=== PATIENT | female | born 1995 | race Caucasian/White ===

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

== ENCOUNTER 2017-02-20 09:01 | Emergency (ER) | payer MEDICAID ==
[~2017-02-20] VITALS: Wt 63.5 kg
[~2017-02-20 09:01] MED LIST changes: +IBUP400T22 PO
[2017-02-20 09:44] LABS: URINE BLOOD (Dip) POC Trace-intact (NEGATIVE)
[2017-02-20] MEDS ORDERED: KETOROLAC 30 MG INJ IM STA (09:46)
--- NOTE | 2017-02-20 12:00 | RADRPT ---
PROCEDURE: US Pelvis CLINICAL INDICATION: Left pelvic pain. TECHNIQUE: Sonographic evaluation of the pelvis was performed utilizing both transabdominal and tr ansvaginal technique. Curved array transabdominal transducer technique as well as a high frequency endovaginal probe was utilized. Images were reviewed on the high-resolution PACS workstation. COMPARISON: Pelvic ultrasound dated 11/30/2016 FINDINGS: The uterus is normal in size, echogenicity, and morphology measuring 7.4 x 3.6 x 4.3 cm in dimension . The uterus is anteverted in normal position. The endometrium measures 4.8 mm in diameter. The normal trilaminar stripe of the endometrium is preserved. The right ovary measures 3.9 x 1.6 cm in dimension. The left ovary measures 3.4 x 1.4 cm in dimensi on. Left ovarian hemorrhagic cyst seen previously is now resolved. There are no adnexal masses. T here is mild free fluid in the pelvis. No other incidental abnormality is identified. IMPRESSION: 1. Interval resolution of previously identified left ovarian hemorrhagic cyst. 2. Unremarkable pelvic ultrasound at this time. 3. Mild benign physiologic free fluid in the pelvis. RPTAT: PP .Stepan Mejias MD, MD Date Time Electronically viewed and signed by .Stepan Mejias MD, MD on 02/20/2017 11:59 .B/
[2017-02-20] MEDS ORDERED: NITR-58 PO (12:12)
[2017-02-20] MEDS ORDERED: PHEN-537 PO (12:12)
--- NOTE | 2017-02-20 12:17 | ERD ---
ER Documentation Chief Complaint Date/Time DATE: 02/20/17 TIME: 12:13 Chief Complaint DYSURIA SINCE LAST NIGHT HPI 21 year old female patient with a past medical history of an ovarian cyst presents to the ED complaining of intermittent left pelvic pain that started 2 months ago. Reports that she started to get dysuria 3 days ago. States that she has some burning with urination. Describes the pain as sharp in her left pelvic region and pain does not radiate. Reports that her last menses was on February 12, 2017. Denies any vaginal bleeding, vaginal discharge, nausea, vomiting, diarrhea, constipation. Reports she has normal daily bowel movements. Denies any chest pain, shortness of breath, fever, chills. States that she is not sexually active. Denies any concern for STDs. ROS All systems reviewed and are negative except as per history of present illness. Medications Home Meds Active Scripts Phenazopyridine Hcl* (Pyridium*) 100 Mg Tab, 100 MG PO TID Y for URINARY PAIN, # 8 TAB Prov:ELEAZAR GAFFNEY PA-C 02/20/17 Nitrofurantoin Monohyd Macrocr* (Macrobid*) 100 Mg Capsr, 100 MG PO BID for 7 Days, CAP Prov:ELEAZAR GAFFNEY PA-C 02/20/17 Phenazopyridine Hcl* (Pyridium*) 100 Mg Tab, 100 MG PO TID Y for URINARY PAIN, # 10 TAB Prov:ARIAS BLANCAS PA-C 11/30/16 Ibuprofen* (Motrin*) 400 Mg Tab, 400 MG PO Q6, #30 TAB Prov:ARIAS BLANCAS PA-C 11/30/16 Phenazopyridine Hcl* (Pyridium*) 100 Mg Tab, 100 MG PO TID Y for URINARY PAIN, # 6 TAB Prov:WILLEM SANCHEZ PA-C 11/17/16 Cephalexin* (Keflex*) 500 Mg Capsule, 500 MG PO TID for 7 Days, #21 CAP Prov:WILLEM SANCHEZ PA-C 11/17/16 Phenazopyridine Hcl* (Pyridium*) 200 Mg Tab, 200 MG PO TID Y for URINARY PAIN, # 6 TAB Prov:KERRY MERAZ MD 10/11/16 Sulfamethoxazole-Trimethoprim* (Bactrim* DS) 800-160 Mg Tab, 1 TAB PO BID for 5 Days, TAB Prov:KERRY MERAZ MD 10/11/16 Nitrofurantoin Monohyd Macrocr* (Macrobid*) 100 Mg Capsr, 100 MG PO BID for 14 Days, CAP Prov:MADDISON ORTA 09/07/16 Metronidazole* (Flagyl*) 500 Mg Tablet, 500 MG PO BID for 7 Days, TAB Prov:FAN GABRIEL PA-C 08/24/16 Hydrocodone/Acetaminophen ([place] 5-325 Tablet) 1 Each Tablet, 1 TAB PO Q6H Y for PAIN, #7 TAB Prov:CECY HENSON PA-C 06/25/16 Phenazopyridine Hcl* (Pyridium*) 100 Mg Tab, 100 MG PO TID Y for URINARY PAIN, # 8 TAB Prov:CECY HENSON PA-C 06/25/16 Nitrofurantoin Monohyd Macrocr* (Macrobid*) 100 Mg Capsr, 100 MG PO BID for 10 Days, CAP Prov:CECY HENSON PA-C 06/25/16 Fluconazole* (Diflucan*) 150 Mg Tablet, 150 MG PO ONCE, #1 TAB Prov:KERRY MERAZ MD 06/17/16 Ibuprofen* (Motrin*) 600 Mg Tab, 600 MG PO Q6, #30 TAB Prov:TERRIE TOM PA-C 03/22/16 Phenazopyridine Hcl* (Pyridium*) 200 Mg Tab, 200 MG PO TID Y for URINARY PAIN for 2 Days, #6 TAB Prov:TERRIE TOM PA-C 03/22/16 Cephalexin* (Keflex*) 500 Mg Capsule, 500 MG PO QID for 7 Days, CAP Prov:TERRIE TOM PA-C 03/22/16 Dicyclomine Hcl* (Bentyl*) 10 Mg Capsule, 10 MG PO QID for 5 Days, CAP Prov:JACK RIZZO 11/22/15 Ondansetron Hcl* (Zofran*) 4 Mg Tablet, 4 MG PO Q6H for NAUSEA AND/OR VOMITING, #30 TAB Prov:JACK RIZZO 11/22/15 Allergies Allergies: Coded Allergies: No Known Allergy (Verified , 06/25/16) PMhx/Soc History of Surgery: Yes (APPY 2000) Anesthesia Reaction: No Hx Neurological Disorder: No Hx Respiratory Disorders: No Hx Cardiac Disorders: No Hx Psychiatric Problems: No Hx Miscellaneous Medical Probl: Yes (UTI) Hx Alcohol Use: No Hx Substance Use: No Hx Tobacco Use: No Physical Exam Vitals Vital Signs Date Time Temp Pulse Resp B/P Pulse Ox O2 Delivery O2 Flow Rate FiO2 02/20/17 12:32 61 18 122/75 98 Room Air 02/20/17 09:05 98.0 71 18 126/84 99 Physical Exam Const: Eth-[id number], well-nourished. In no acute distress. Head: Atraumatic, normocephalic Eyes: Normal Conjunctiva without injection. No purulent discharge. ENT: Normal external ear, nose. Moist oropharynx without tonsillar exudates. Non -erythematous pharynx. Uvula midline. No drooling. No trismus. Neck: No cervical midline tenderness. Full range of motion. No meningismus. No cervical lymphadenopathy. No JVD. Resp: Clear to auscultation bilaterally. No wheezing, rhonchi, rales, or crackles. No accessory muscle use. No retractions. Cardio: Regular rate and rhythm. No murmurs, rubs or gallops. Abd: Soft, slight left pelvic tenderness, non distended. Normal bowel sounds. No palpable masses. No rebound tenderness. No guarding. Negative McBurney's point. Negative psoas sign. Negative obturator sign. Skin: No petechiae or rashes Back: No midline tenderness. No CVA tenderness. Ext: No cyanosis, or edema. Neur: Awake and alert. Normal gait. Normal coordination. Psych: Normal Mood and Affect Results 24 hrs Laboratory Tests Test 02/20/17 09:44 Bedside Urine pH (LAB) 5.5 Bedside Urine Protein (LAB) Negative Bedside Urine Glucose (UA) Negative Bedside Urine Ketones (LAB) Negative Bedside Urine Blood Trace-intact Bedside Urine Nitrite (LAB) Positive Bedside Urine Leukocyte Esterase (L 1+ Current Medications Medications (Trade) Dose Ordered Sig/Leena Route PRN Reason Start Time Stop Time Status Last Admin Dose Admin Ketorolac Tromethamine (Toradol) 30 mg ONCE STAT IM 02/20/17 09:46 02/20/17 09:47 DC 02/20/17 10:03 Procedures/MDM This is a 21-year-old female patient with a past medical history of left ovarian cyst presents to the ED complaining of left pelvic pain and dysuria. Patient is afebrile and nontoxic-appearing. Patient has normal vital signs. Urine dip and urine culture was ordered to further evaluate patient. Patient was treated here in the ED with ketorolac with improvement of her pain. PROCEDURE: US Pelvis CLINICAL INDICATION: Left pelvic pain. TECHNIQUE: Sonographic evaluation of the pelvis was performed utilizing both transabdominal and transvaginal technique. Curved array transabdominal transducer technique as well as a high frequency endovaginal probe was utilized. Images were reviewed on the high-resolution PACS workstation. COMPARISON: Pelvic ultrasound dated 11/30/2016 FINDINGS: The uterus is normal in size, echogenicity, and morphology measuring 7.4 x 3.6 x 4.3 cm in dimension. The uterus is anteverted in normal position. The endometrium measures 4.8 mm in diameter. The normal trilaminar stripe of the endometrium is preserved. The right ovary measures 3.9 x 1.6 cm in dimension. The left ovary measures 3.4 x 1.4 cm in dimension. Left ovarian hemorrhagic cyst seen previously is now resolved. There are no adnexal masses. There is mild free fluid in the pelvis. No other incidental abnormality is identified. IMPRESSION: 1. Interval resolution of previously identified left ovarian hemorrhagic cyst. 2. Unremarkable pelvic ultrasound at this time. 3. Mild benign physiologic free fluid in the pelvis. Urine dip showed trace hematuria, 1+ leukocyte esterase, positive nitrite. Patient will be treated on outpatient basis for her urinary tract infection. Negative urine . No CVA tenderness noted. Since patient gets recurrent urinary tract infections, urine culture will be sent for further evaluation. Low suspicion for symptomatic anemia, ectopic , pyelonephritis, sepsis, PID, appendicitis, ovarian torsion, tubo-ovarian abscess , surgical abdomen, diverticulitis, or other emergent conditions. Discharge medications: Macrobid, Pyridium Patient to follow up with [facility] in 2 days for further evaluation and treatment. Patient is to return sooner to the ED for any worsening symptoms. Patient's questions were answered. Patient understood and agreed with discharge plan. Departure Diagnosis: Primary Impression: Dysuria Additional Impression: Pelvic pain Condition: Stable Patient Instructions: Urinary Tract Infections in Women, Pelvic Pain, Unknown Cause Referrals: COMMUNITY CLINICS YOU HAVE RECEIVED A MEDICAL SCREENING EXAM AND THE RESULTS INDICATE THAT YOU DO NOT HAVE A CONDITION THAT REQUIRES URGENT TREATMENT IN THE EMERGENCY DEPARTMENT. FURTHER EVALUATION AND TREATMENT OF YOUR CONDITION CAN WAIT UNTIL YOU ARE SEEN IN YOUR DOCTORS OFFICE WITHIN THE NEXT 1-2 DAYS. IT IS YOUR RESPONSIBILITY TO MAKE AN APPOINTMENT FOR FOLOW-UP CARE. IF YOU HAVE A PRIMARY DOCTOR --you should call your primary doctor and schedule an appointment IF YOU DO NOT HAVE A PRIMARY DOCTOR YOU CAN CALL OUR PHYSICIAN REFERRAL HOTLINE AT IF YOU CAN NOT AFFORD TO SEE A PHYSICIAN YOU CAN CHOSE FROM THE FOLLOWING [facility] [address] [facility] [address] [facility] [facility] [address] [facility] [facility] [address] [facility]. [facility] [address] [facility]. [facility] [address] [facility]. [facility] YOU HAVE RECEIVED A MEDICAL SCREENING EXAM AND THE RESULTS INDICATE THAT YOU DO NOT HAVE A CONDITION THAT REQUIRES URGENT TREATMENT IN THE EMERGENCY DEPARTMENT. FURTHER EVALUATION AND TREATMENT OF YOUR CONDITION CAN WAIT UNTIL YOU ARE SEEN IN YOUR DOCTORS OFFICE WITHIN THE NEXT 1-2 DAYS. IT IS YOUR RESPONSIBILITY TO MAKE AN APPOINTMENT FOR FOLOW-UP CARE. IF YOU HAVE A PRIMARY DOCTOR --you should call your primary doctor and schedule and appointment IF YOU DO NOT HAVE A PRIMARY DOCTOR YOU CAN CALL OUR PHYSICIAN REFERRAL HOTLINE AT . IF YOU CAN NOT AFFORD TO SEE A PHYSICIAN YOU CAN CHOSE FROM THE FOLLOWING [facility] INSTITUTIONS: [facility] [address] [place] [address] [facility] [address] [place] [address] [facility] [address] [place] [address] [facility] URGENT CARE/SPECIALTIES [facility] [place] [address] [facility] [address] [place] [address] OFFICE FAX , [place] [address] [place], [place] [id number] DR. KENNEDY, [place] [address] [place] [address] DR DRIVER, [facility] [address], [address], [place] [address] DR WILLAMS, [facility] [address] [place] [address] [facility] [address] [place] [address] [address] [facility] [address] - [address] ANDERSON, ELAINE [address], [facility] [address] [address] MCKEON, [place] [address] [facility]. [address], [place] [address] [address] [facility] [address] [place], [place] [id number] [facility] Hours: 8:00 am - 5:00 pm Additional Instructions: FOLLOW UP WITH YOUR PRIMARY CARE PHYSICIAN TOMORROW. Return to this facility if you are not improving as expected. ELEAZAR GAFFNEY PA-C Feb 20, 2017 12:17
[2017-02-20 12:32] VITALS: BP 122/75; PULSE 61; RESP 18
== END 2017-02-20 12:33 | disposition home or self-care (01) ==
LOC: FTE 09:01
DX: R30.0 Dysuria (principal); R10.2 Pelvic and perineal pain
CPT/HCPCS: 76830; 76856; 81003; 87086; 96372; J1885; Z7502

== ENCOUNTER 2017-04-08 18:08 | Emergency (ER) | payer MEDICAID, OTHER ==
[~2017-04-08] VITALS: Ht 162.6 cm; Wt 64.5 kg
[2017-04-08 18:10] VITALS: Ht 162.6 cm; Wt 64.5 kg
[2017-04-08] MEDS ORDERED: PHENAZOPYRIDINE 100 MG TAB PO ONE (18:30)
[2017-04-08 18:33] LABS: URINE BLOOD (Dip) POC 2+ (NEGATIVE)
[2017-04-08] MEDS ORDERED: NITR-58 PO (19:02)
[2017-04-08] MEDS ORDERED: PHEN-537 PO (19:03)
--- NOTE | 2017-04-08 19:17 | ERD ---
ER Documentation Chief Complaint Date/Time DATE: 04/08/17 TIME: 19:08 Chief Complaint Complains of burning on urination HPI This is a 21-year-old female presents to the ER with urinary frequency and dysuria and bladder pain that started an hour ago. Patient denies any flank pain. She denies any fevers however states she had one chill when her symptoms started. Patient denies any nausea vomiting or diarrhea. Patient denies any vaginal discharge. Her last normal menstrual period was at the end of February. ROS 12 point review of systems was done, all negative except per HPI. Medications Home Meds Active Scripts Phenazopyridine Hcl* (Pyridium*) 100 Mg Tab, 100 MG PO TID Y for URINARY PAIN, # 9 TAB Prov:JACK RIZZO C 04/08/17 Nitrofurantoin Monohyd Macrocr* (Macrobid*) 100 Mg Capsr, 100 MG PO BID for 7 Days, CAP Prov:JACK RIZZO C 04/08/17 Phenazopyridine Hcl* (Pyridium*) 100 Mg Tab, 100 MG PO TID Y for URINARY PAIN, # 8 TAB Prov:ELEAZAR GAFFNEYC 02/20/17 Nitrofurantoin Monohyd Macrocr* (Macrobid*) 100 Mg Capsr, 100 MG PO BID for 7 Days, CAP Prov:ELEAZAR GAFFNEYC 02/20/17 Phenazopyridine Hcl* (Pyridium*) 100 Mg Tab, 100 MG PO TID Y for URINARY PAIN, # 10 TAB Prov:ARIAS BLANCAS-C 11/30/16 Ibuprofen* (Motrin*) 400 Mg Tab, 400 MG PO Q6, #30 TAB Prov:ARIAS BLANCAS-C 11/30/16 Phenazopyridine Hcl* (Pyridium*) 100 Mg Tab, 100 MG PO TID Y for URINARY PAIN, # 6 TAB Prov:WILLEM SANCHEZC 11/17/16 Cephalexin* (Keflex*) 500 Mg Capsule, 500 MG PO TID for 7 Days, #21 CAP Prov:WILLEM SANCHEZC 11/17/16 Phenazopyridine Hcl* (Pyridium*) 200 Mg Tab, 200 MG PO TID Y for URINARY PAIN, # 6 TAB Prov:KERRY MERAZ MD 10/11/16 Sulfamethoxazole-Trimethoprim* (Bactrim* DS) 800-160 Mg Tab, 1 TAB PO BID for 5 Days, TAB Prov:KERRY MERAZ MD 10/11/16 Nitrofurantoin Monohyd Macrocr* (Macrobid*) 100 Mg Capsr, 100 MG PO BID for 14 Days, CAP Prov:MADDISON ORTA 09/07/16 Metronidazole* (Flagyl*) 500 Mg Tablet, 500 MG PO BID for 7 Days, TAB Prov:FAN GABRIEL PA-C 08/24/16 Hydrocodone/Acetaminophen ([place] 5-325 Tablet) 1 Each Tablet, 1 TAB PO Q6H Y for PAIN, #7 TAB Prov:CECY HENSON PA-C 06/25/16 Phenazopyridine Hcl* (Pyridium*) 100 Mg Tab, 100 MG PO TID Y for URINARY PAIN, # 8 TAB Prov:CECY HENSON PA-C 06/25/16 Nitrofurantoin Monohyd Macrocr* (Macrobid*) 100 Mg Capsr, 100 MG PO BID for 10 Days, CAP Prov:CECY HENSON PA-C 06/25/16 Fluconazole* (Diflucan*) 150 Mg Tablet, 150 MG PO ONCE, #1 TAB Prov:KERRY MERAZ MD 06/17/16 Ibuprofen* (Motrin*) 600 Mg Tab, 600 MG PO Q6, #30 TAB Prov:TERRIE TOM PA-C 03/22/16 Phenazopyridine Hcl* (Pyridium*) 200 Mg Tab, 200 MG PO TID Y for URINARY PAIN for 2 Days, #6 TAB Prov:TERRIE TOM PA-C 03/22/16 Cephalexin* (Keflex*) 500 Mg Capsule, 500 MG PO QID for 7 Days, CAP Prov:TERRIE TOM PA-C 03/22/16 Dicyclomine Hcl* (Bentyl*) 10 Mg Capsule, 10 MG PO QID for 5 Days, CAP Prov:JACK RIZZO 11/22/15 Ondansetron Hcl* (Zofran*) 4 Mg Tablet, 4 MG PO Q6H for NAUSEA AND/OR VOMITING, #30 TAB Prov:JACK RIZZO 11/22/15 Allergies Allergies: Coded Allergies: No Known Allergy (Verified , 06/25/16) PMhx/Soc History of Surgery: Yes (APPY 2000) Anesthesia Reaction: No Hx Neurological Disorder: No Hx Respiratory Disorders: No Hx Cardiac Disorders: No Hx Psychiatric Problems: No Hx Miscellaneous Medical Probl: Yes (UTI) Hx Alcohol Use: No Hx Substance Use: No Hx Tobacco Use: No Physical Exam Vitals Vital Signs Date Time Temp Pulse Resp B/P Pulse Ox O2 Delivery O2 Flow Rate FiO2 04/08/17 18:10 98.8 98 20 125/72 99 Physical Exam GENERAL: The patient is well developed and appropriate for usual state of health , in no apparent distress. HEENT: Atraumatic. CHEST: Clear to auscultation bilaterally. There are no rales, wheezes or rhonchi. HEART: Regular rate and rhythm. No murmurs, clicks, rubs or gallops. ABDOMEN: Soft, nontender and nondistended. Good bowel sounds. No rebound or guarding. No gross peritonitis. No gross organomegaly or masses. No Huitron sign or McBurney point tenderness. +suprapubic pain BACK: No midline or flank tenderness. no cva tenderness NEURO: Alert and oriented. SKIN: The skin is warm and dry. Results 24 hrs Laboratory Tests Test 04/08/17 18:37 Bedside Urine pH (LAB) 6.5 Bedside Urine Protein (LAB) Negative Bedside Urine Glucose (UA) Negative Bedside Urine Ketones (LAB) Negative Bedside Urine Blood 2+ Bedside Urine Nitrite (LAB) Negative Bedside Urine Leukocyte Esterase (L 2+ Current Medications Medications (Trade) Dose Ordered Sig/Leena Route PRN Reason Start Time Stop Time Status Last Admin Dose Admin Phenazopyridine HCl (Pyridium) 200 mg ONCE ONCE PO 04/08/17 18:30 04/08/17 18:31 DC 04/08/17 18:34 Procedures/MDM This is a 21-year-old female presents to the ER with urinary frequency and dysuria. Patient does have a urinary tract infection. Patient is afebrile and well-appearing she does not have any CVA tenderness suspicion for pyelonephritis is low. I doubt kidney stones, intra-abdominal emergency. Patient's abdominal exam is completely benign. Patient will be sent home with Macrobid with Pyridium. She is to follow-up with her primary care doctor within 1-2 days return to ER sooner if symptoms worsen. My medical decision making shared with the patient she understands and agrees with plan. Departure Diagnosis: Primary Impression: UTI (urinary tract infection) Condition: Stable Patient Instructions: Understanding Urinary Tract Infections (UTIs) Additional Instructions: Call your primary care doctor TOMORROW for an appointment during the next 1-2 days.See the doctor sooner or return here if your condition worsens before your appointment time. JACK RIZZO Apr 08, 2017 19:16
[2017-04-08 19:25] VITALS: BP 111/64; PULSE 80; RESP 18; TEMP 99.2
== END 2017-04-08 19:20 | disposition home or self-care (01) ==
LOC: FTE 18:08
DX: N39.0 Urinary tract infection, site not specified (principal)
CPT/HCPCS: 81003; Z7610; 99283

== ENCOUNTER 2017-08-04 07:02 | Emergency (ER) | payer OTHER ==
[~2017-08-04] VITALS: Ht 160 cm; Wt 63.5 kg
[2017-08-04 07:08] VITALS: Ht 160 cm; Wt 63.5 kg
[2017-08-04 07:51] LABS: URINE BLOOD (Dip) POC 2+ (NEGATIVE)
[2017-08-04] MEDS ORDERED: CIPR500T4 PO (07:52)
[2017-08-04] MEDS ORDERED: LIDOCAINE 1% (MDV) 20 ML INJ SC ONE (08:00)
[2017-08-04] MEDS ORDERED: CEFTRIAXONE 1 GM INJ IM ONE (08:00)
--- NOTE | 2017-08-04 08:06 | ERD ---
ER Documentation Chief Complaint Date/Time DATE: 08/04/17 TIME: 07:55 Chief Complaint flank pain and pain with urination x 1 week HPI 22-year-old female complaining of flank pain with dysuria 1 week. Patient has urinary frequency. This morning she woke up with back pain and dribbling urine. Denies hematuria. Last UTI was 1 month ago. She gets often UTIs for the last 3 years. LNMP: 07/05/2017. Took ibuprofen this morning. Denies fever. Denies abdominal pain. Denies headache. Denies nausea vomiting. Denies diarrhea. Medical problems: Denies. Surgical history: Denies. Social history he smokes marijuana. NKDA. ROS All systems reviewed and are negative except as per history of present illness. Medications Home Meds Active Scripts Ciprofloxacin Hcl* (Ciprofloxacin Hcl*) 500 Mg Tablet, 500 MG PO BID for 10 Days , TAB Prov:FAN GABRIEL PA-C 08/04/17 Phenazopyridine Hcl* (Pyridium*) 200 Mg Tab, 200 MG PO TID Y for URINARY PAIN, # 6 TAB Prov:DAYANA BATRES PA-C 07/13/17 Ibuprofen* (Motrin*) 600 Mg Tab, 600 MG PO Q6, #30 TAB Prov:DAYANA BATRES PA-C 07/13/17 Cephalexin* (Keflex*) 500 Mg Capsule, 500 MG PO QID for 7 Days, CAP Prov:DAYANA BATRES PA-C 07/13/17 Phenazopyridine Hcl* (Pyridium*) 100 Mg Tab, 100 MG PO TID Y for URINARY PAIN, # 9 TAB Prov:JACK RIZZO 04/08/17 Nitrofurantoin Monohyd Macrocr* (Macrobid*) 100 Mg Capsr, 100 MG PO BID for 7 Days, CAP Prov:JACK RIZZO 04/08/17 Phenazopyridine Hcl* (Pyridium*) 100 Mg Tab, 100 MG PO TID Y for URINARY PAIN, # 8 TAB Prov:ELEAZAR GAFFNEY PA-C 02/20/17 Nitrofurantoin Monohyd Macrocr* (Macrobid*) 100 Mg Capsr, 100 MG PO BID for 7 Days, CAP Prov:ELEAZAR GAFFNEY PA-C 02/20/17 Phenazopyridine Hcl* (Pyridium*) 100 Mg Tab, 100 MG PO TID Y for URINARY PAIN, # 10 TAB Prov:ARIAS BLANCAS PA-C 11/30/16 Ibuprofen* (Motrin*) 400 Mg Tab, 400 MG PO Q6, #30 TAB Prov:ARIAS BLANCAS PA-C 11/30/16 Phenazopyridine Hcl* (Pyridium*) 100 Mg Tab, 100 MG PO TID Y for URINARY PAIN, # 6 TAB Prov:WILLEM SANCHEZ PA-C 11/17/16 Cephalexin* (Keflex*) 500 Mg Capsule, 500 MG PO TID for 7 Days, #21 CAP Prov:WILLEM SANCHEZ PA-C 11/17/16 Phenazopyridine Hcl* (Pyridium*) 200 Mg Tab, 200 MG PO TID Y for URINARY PAIN, # 6 TAB Prov:KERRY MERAZ MD 10/11/16 Sulfamethoxazole-Trimethoprim* (Bactrim* DS) 800-160 Mg Tab, 1 TAB PO BID for 5 Days, TAB Prov:KERRY MERAZ MD 10/11/16 Nitrofurantoin Monohyd Macrocr* (Macrobid*) 100 Mg Capsr, 100 MG PO BID for 14 Days, CAP Prov:MADDISON ORTA 09/07/16 Metronidazole* (Flagyl*) 500 Mg Tablet, 500 MG PO BID for 7 Days, TAB Prov:FAN GABRIEL PA-C 08/24/16 Hydrocodone/Acetaminophen ([place] 5-325 Tablet) 1 Each Tablet, 1 TAB PO Q6H Y for PAIN, #7 TAB Prov:CECY HENSON PA-C 06/25/16 Phenazopyridine Hcl* (Pyridium*) 100 Mg Tab, 100 MG PO TID Y for URINARY PAIN, # 8 TAB Prov:CECY HENSON PA-C 06/25/16 Nitrofurantoin Monohyd Macrocr* (Macrobid*) 100 Mg Capsr, 100 MG PO BID for 10 Days, CAP Prov:CECY HENSON PA-C 06/25/16 Fluconazole* (Diflucan*) 150 Mg Tablet, 150 MG PO ONCE, #1 TAB Prov:KERRY MERAZ MD 06/17/16 Ibuprofen* (Motrin*) 600 Mg Tab, 600 MG PO Q6, #30 TAB Prov:TERRIE TOM LADIOsmar 03/22/16 Phenazopyridine Hcl* (Pyridium*) 200 Mg Tab, 200 MG PO TID Y for URINARY PAIN for 2 Days, #6 TAB Prov:TERRIE TOM MICHAELTejas 03/22/16 Cephalexin* (Keflex*) 500 Mg Capsule, 500 MG PO QID for 7 Days, CAP Prov:TERRIE TOM MICHAELVeniceOsmar 03/22/16 Dicyclomine Hcl* (Bentyl*) 10 Mg Capsule, 10 MG PO QID for 5 Days, CAP Prov:JACK RIZZO Osmar 11/22/15 Ondansetron Hcl* (Zofran*) 4 Mg Tablet, 4 MG PO Q6H for NAUSEA AND/OR VOMITING, #30 TAB Prov:JACK RIZZO Osmar 11/22/15 Allergies Allergies: Coded Allergies: No Known Allergy (Verified , 08/04/17) PMhx/Soc History of Surgery: Yes (appendectomy 2000) Anesthesia Reaction: No Hx Neurological Disorder: No Hx Respiratory Disorders: No Hx Cardiac Disorders: No Hx Psychiatric Problems: No Hx Miscellaneous Medical Probl: Yes (UTI) Hx Alcohol Use: Yes Hx Substance Use: Yes (marijuana) Hx Tobacco Use: No Smoking Status: Never smoker Physical Exam Vitals Vital Signs Date Time Temp Pulse Resp B/P Pulse Ox O2 Delivery O2 Flow Rate FiO2 08/04/17 07:08 98.6 72 18 116/72 97 Physical Exam GENERAL: The patient is well-appearing, well-nourished, in no acute distress CHEST: Clear to auscultation bilaterally. There are no rales, wheezes or rhonchi. HEART: Regular rate and rhythm. No murmurs, clicks, rubs or gallops. No S3 or S4. ABDOMEN:Soft, nontender and nondistended. Good bowel sounds. No rebound or guarding. No gross peritonitis. No gross organomegaly or masses. BACK: Questionable flank pain Results 24 hrs Current Medications Medications (Trade) Dose Ordered Sig/Leena Route PRN Reason Start Time Stop Time Status Last Admin Dose Admin Ceftriaxone Sodium (Rocephin) 1 gm ONCE ONCE IM 08/04/17 08:00 08/04/17 08:01 Lidocaine (Xylocaine 1% (Mdv) 20 ml) 20 ml ONCE ONCE SC 08/04/17 08:00 08/04/17 08:01 Procedures/MDM ER Course: Rocephin 1 gram MDM: 22 yr old female complaining of dysuria. Urine shows signs of infection. Patient will be treated with oral antibiotics. Urine is sent for culture given patient has frequent UTIs. Patient's vital signs are stable and has questionable flank tenderness. I have low suspicion for pyelonephritis however I will treat aggressively to prevent worsening infection from developing. I have low suspicion for acute abdomen. Exam is non concerning. Patient will be discharged with antibiotics and recommended to follow-up with primary care within 1-2 days for close evaluation. Patient is told if symptoms change or worsen to return to the emergency room. All questions answered at discharge. Departure Diagnosis: Primary Impression: Acute cystitis Condition: Stable Patient Instructions: Understanding Urinary Tract Infections (UTIs) Referrals: GERARDO HERNANDEZ (PCP) Additional Instructions: FOLLOW UP WITH YOUR PRIMARY CARE PHYSICIAN TOMORROW.Return to this facility if you are not improving as expected. FAN GABRIEL PA-C Aug 04, 2017 08:05
== END 2017-08-04 08:22 | disposition home or self-care (01) ==
LOC: FTE 07:02
DX: N30.00 Acute cystitis without hematuria (principal)
CPT/HCPCS: 81003; 96372; J0696; Z7502; Z7610

== ENCOUNTER 2018-07-23 09:19 | Emergency (ER) | END 2018-07-23 10:43 | disposition home or self-care (01) ==

== ENCOUNTER 2018-09-03 04:18 | Emergency (ER) | END 2018-09-03 05:42 | disposition home or self-care (01) ==